=== PATIENT | female | born 1940 | race Caucasian/White ===

== ENCOUNTER 2018-06-30 16:18 | Inpatient (IN) ==
[2018-06-30 17:32] LABS: BASO# 0.02 X1000 (0.0-0.2); BASO% 0.1 % (0.0-0.8); EOS# 0.07 X1000 (0.0-0.7); EOS% 0.5 % (0.0-10.0); HEMATOCRIT 36.2 % (37.0-47.0); IMM GRAN# 0.03 X1000 (0.0-0.04); IMM GRAN% 0.2 % (0.0-0.5); INR 1.07; LYMPH# 8.95 X1000 (1.2-3.4); LYMPH% 59.1 % (20.5-51.1); MCH 29.5 PG (27-31); MCHC 33.1 g/dL (33-37); MCV 88.9 FL (81-99); MONO# 0.82 X1000 (0.11-0.59); MONO% 5.4 % (1.7-9.3); MPV 10.6 FL (7.4-10.4); NEUT# 5.26 X1000 (1.4-6.5); NEUT% 34.7 % (42.2-75.2); PLT 304 X1000 (130-400); PROTIME 14.8 Seconds (11.0-16.0); RBC 4.07 XMIL (4.2-5.4); RDW 12.9 % (11.5-14.5); WBC 15.15 X1000 (4.8-10.8)
[2018-06-30 17:33] LABS: PTT 37.5 Seconds (22.3-41.8)
[2018-06-30 17:53] LABS: ALB/GLOB RATIO 1.8; ALBUMIN 3.7 g/dL (3.5-5.0); CALCIUM 8.8 mg/dL (8.8-10.2); POTASSIUM 3.6 mmol/L (3.5-5.1); TOTAL BILIRUBIN 0.3 mg/dL (0.20-1.00); TOTAL PROTEIN 5.8 g/dL (6.3-8.3)
--- NOTE | 2018-06-30 21:40 | HISTORY AND PHYSICAL ---
PRIMARY CARE PHYSICIAN: Brady Crocker MD. CHIEF COMPLAINT: Bloody diarrhea x5 days. HISTORY OF PRESENTING ILLNESS: A 78-year-old female with a history of CLL, ulcerative colitis, hyperlipidemia, and hypertension, had presented to the emergency department with 5 days' history of having bloody diarrhea. She states that she was feeling weak, and subsequently she had come to the emergency department. In the ED, she was evaluated, and due to presenting symptoms, it was thought that we will place her for observation for further evaluation and management. At the time of my examination, she denied any headache, fever, chills, chest pain, shortness of breath, or any recent weight changes but complained of bloody diarrhea. PAST MEDICAL HISTORY: Includes CLL, ulcerative colitis, hyperlipidemia, hypertension. PAST SURGICAL HISTORY: Hysterectomy, colon resection. ALLERGY: Penicillin. CURRENT MEDICATIONS: As listed in the medication reconciliation sheet. SOCIAL HISTORY: No history of smoking, alcohol, or illicit drug use. FAMILY HISTORY: No history of coronary disease. REVIEW OF SYSTEMS: Fourteen-point review of systems is as in HPI. Other systems negative. PHYSICAL EXAMINATION: GENERAL: Cooperative, friendly female. She is resting more comfortably now. VITAL SIGNS: Temperature 98.7 degrees, pulse 79, respiration 18, blood pressure 140/57. HEENT: Atraumatic, normocephalic. Extraocular movements intact. PERRLA. NECK: Supple. CHEST: Clear to auscultation. CARDIOVASCULAR: Regular rate and rhythm. ABDOMEN: Soft. Diffuse tenderness. EXTREMITIES: No edema. NEUROLOGIC: She is awake, alert, oriented x3. GENITOURINARY: No bladder distention. SKIN: Warm. LABORATORIES AND STUDIES: WBC 15.15, hemoglobin 12.1, hematocrit 36.2, platelets 304,000. Sodium 128, potassium 3.6, chloride 89, CO2 of 28, BUN is 11, creatinine 1.0, glucose 101. ASSESSMENT: A 78-year-old female with a history of ulcerative colitis, chronic lymphocytic leukemia, hyperlipidemia, and hypertension, had presented to the emergency department with 5 days' history of having bloody diarrhea. She states that it seemed to be worsening, and subsequently she had come to the emergency department. In the ED, she was evaluated, and due to her presenting symptoms, it was thought that we will place her for observation for further evaluation and management. 1. Abdominal pain. 2. Ulcerative colitis with bloody diarrhea. 3. Hyponatremia. 4. Afib 5. Chronic lymphocytic leukemia- not on treatment 6. Hypertension. PLAN: 1. We will admit patient to medical floor with telemetry. 2. Keep patient NPO. Continue with IV fluids, antiemetics 3. Consult Gastroenterology. 4. Hold anticoagulation meds 5. We will monitor electrolytes. 6. Monitor BP closely 7. Put patient on DVT prophylaxis with SCD. 8. We will continue to follow and reassess and make further recommendation based on patient's clinical course. cc: Gerhard Gilliam MD MTD
[2018-06-30] MEDS: ZOFRAN IV PRN (22:42)
[2018-06-30] MEDS: FLAGYL 500 MG/NS 500 MG/100 ML IVPB IV SCH (22:42)
[2018-06-30] MEDS: NS 1,000 ML IV SCH (22:42)
--- NOTE | 2018-07-01 00:31 | PROVIDER DOCUMENTATION ---
This chart was entered by Lynette Mott Scribe, acting as scribe for Doreen Kauffman MD. HPI-Abdominal Pain/GI Problem - General Chief Complaint: GI Bleed Stated Complaint: "DEHYDRATED" Time Seen by Provider: 06/30/18 17:57 Source: patient Allergies/Adverse Reactions: Patient Allergies Allergy/AdvReac Type Severity Reaction Status Date / Time Penicillins Allergy ITCHING Verified 06/30/18 19:31 Home Medications: Home Medication List Medication Instructions Recorded Confirmed Last Taken Type Amlodipine [Norvasc] 5 mg PO QHS 06/25/15 06/30/18 06/24/15 20:00 History Fluticasone 50 Mcg Nasal [place] 1 spray INH QAM 06/25/15 06/30/18 06/24/15 07:00 History [Flonase] Lisinopril 20 mg PO BID 06/25/15 06/30/18 06/24/15 20:00 History Omeprazole 40 mg PO QAM 06/25/15 06/30/18 06/24/15 07:00 History Sotalol [Betapace] 80 mg PO BID 06/25/15 06/30/18 06/25/15 07:00 History Apixaban [Eliquis] 1 tab PO BID 06/30/18 06/30/18 Unknown History Nitroglycerin [Nitrostat] 0.4 mg SL PRN PRN 06/30/18 06/30/18 Unknown History - History of Present Illness-ABD Nature of Presenting Problems: 78 y/o female presents to ED with dark brown/tarry stool onset 3 days ago. Pt reports she was seen at [facility] on 06/25/18 and discharged. Pt states she has hx colitis and CLL. Pt reports associated poor appetite, fluid intake, N/D, and headache. Pt is alert and oriented. Abdominal Pain Onset Location: reports: generalized abdomen Pain Radiation: reports: no radiation Quality of Pain: reports: aching Severity in ED: reports: mild Onset/Duration: reports: 3 days ago Timing: reports: still present Activities at Onset: reports: none Exposure to sick contacts?: No Modifying Factors: improves with: nothing Associated Symptoms: reports: diarrhea, headaches, loss of appetite, nausea, other (dark brown/tarry stools; poor fluid intake) Last BM: this afternoon Dark Stools Present?: reports: tarry (dark brown) Rectal Bleeding: reports: none Rectal Pain: reports: none Similar Symptoms Previously?: No Recently seen or treated by another doctor?: Yes ([facility] 06/25/18) Review of Systems - Adult - REVIEW OF SYSTEMS - ADULT Constitutional: denies: chills, fever Eyes: reports: no symptoms reported Ears, Nose, Mouth & Throat: reports: no symptoms reported Cardiovascular: denies: chest pain, palpitations Respiratory: denies: cough, shortness of breath Gastrointestinal: reports: abdominal pain, diarrhea, nausea, poor appetite, other (tarry/dark brown stools, poor fluid intake). denies: vomiting Genitourinary: reports: no symptoms reported Musculoskeletal: denies: back pain, joint pain Integumentary: reports: no symptoms reported Neurological: reports: headache/migraines. denies: dizziness/vertigo, seizure Psychiatric: reports: no symptoms reported Endocrine: reports: no symptoms reported Hematologic/Lymphatic: reports: no symptoms reported Allergic/Immunologic: reports: no symptoms reported All Other Systems: Reviewed and Negative Past History - Adult - PAST MEDICAL HISTORY-ADULT Review of Records: reports: Old Records Reviewed, Nursing Assessment Review, Medications Reviewed Major Childhood Illnesses: reports: denies history Cardiovascular: reports: A-Fib, HTN, hyperlipidemia Gastrointestinal: reports: colitis, GERD Endocrine/Immune: reports: Leukemia (CLL) - PRIOR SURGERIES/PROCEDURES Surgical/Procedure History: reports: hysterectomy, bowel surgery (colon resection), orthopedic (extremity) (R shoulder), breast (augmentation) - IMMUNIZATION STATUS Childhood Immunizations: See Nurse Assessment Flu Vaccine: See Nurse Assessment - FAMILY HISTORY Family History: reviewed, not pertinent - SOCIAL HISTORY Smoking: non-smoker Substance Use: none/never Alcohol Use Frequency: never Living Situation: family Physical Exam-General - PHYSICAL EXAM-ADULT Initial Vital Signs Reviewed: Yes - CONSTITUTIONAL General Appearance: appears well, alert, no apparent distress - EYES Eyes: PERRL/EOMI, pink conjunctivae - HEAD, EARS, NOSE, MOUTH & THROAT HENMT: normocephalic/atraumatic, moist mucous membranes, normal ENT inspection - NECK Neck: non-tender, full range of motion - RESPIRATORY Respiratory: chest non-tender, lungs clear, normal breath sounds - CARDIOVASCULAR Cardiovascular: normal peripheral pulses, regular rate, rhythm - GASTROINTESTINAL (ABDOMEN) Abdominal Exam: normal bowel sounds, non tender, soft - GENITOURINARY Rectal Exam: normal exam, normal rectal tone, other (brown stool) Hemoccult Exam: heme positive stool - MUSCULOSKELETAL Back Exam: normal inspection, no CVA tenderness Extremity: normal range of motion, non-tender, normal gait - SKIN Integumentary: normal color, warm/dry - NEUROLOGIC Neurologic: grossly normal Progress - PLAN OF CARE/RESULTS Progress/Plan/Lab Results: Vital Signs - 8 hr 06/30/18 16:31 Temperature 98.7 F Pulse Rate 79 Respiratory Rate 18 Blood Pressure 140/57 O2 Sat by Pulse Oximetry 98 Laboratory Results - last 24 hr 06/30/18 06/30/18 06/30/18 17:09 17:09 17:09 WBC 15.15 H RBC 4.07 L Hgb 12.0 Hct 36.2 L MCV 88.9 MCH 29.5 MCHC 33.1 RDW Std Deviation 12.9 Plt Count 304 MPV 10.6 H Immature Gran % (Auto) 0.2 Neut % (Auto) 34.7 L Lymph % (Auto) 59.1 H [place] % (Auto) 5.4 Eos % (Auto) 0.5 Baso % (Auto) 0.1 Immature Gran # (Auto) 0.03 Neut # (Auto) 5.26 Lymph # (Auto) 8.95 H [place] # (Auto) 0.82 H Eos # (Auto) 0.07 Baso # (Auto) 0.02 PT 14.8 INR 1.07 PTT (Actin FS) 37.5 Sodium 128 L Potassium 3.6 Chloride 89 L Carbon Dioxide 28 Anion Gap 11 BUN 11 Creatinine 1.0 H Estimated GFR/1.73 m2 53 BUN/Creatinine Ratio 11 Glucose 101 Calculated Osmolality 257 Calcium 8.8 Total Bilirubin 0.30 AST 21 ALT 10 Alkaline Phosphatase 51 Total Protein 5.8 L Albumin 3.7 Globulin 2.1 Albumin/Globulin Ratio 1.8 Orders Category Date Time Status CBC WITH ELECTRONIC DIFF [HEME] Stat Lab 06/30/18 17:09 Completed COMPREHENSIVE METABOLIC PANEL [CHEM] Stat Lab 06/30/18 17:09 Completed OCCULT BLOOD DIAGNOSTIC [STOOL] Stat Lab 06/30/18 18:06 Uncollected PROTIME WITH INR [COAG] Stat Lab 06/30/18 17:09 Completed PTT [COAG] Stat Lab 06/30/18 17:09 Completed GI Bleed (possible) Stat Oth 06/30/18 17:13 Ordered Result Diagrams: 06/30/18 17:09 06/30/18 17:09 - CONSULTS/PCP/HOSPITALIST Notification #1 *Consult/PCP/Hospitalist*: Dr. Gerhard Gilliam Time Discussed: 19:54 Consult Disposition: Will see in ED #2 Consult: Dr. Gerhard Gilliam Time Discussed: 21:05 Consult Disposition: Admit (Accepted.) Departure - Departure Date of Disposition Decision: 06/30/18 Time of Disposition Decision: 21:25 DIAGNOSIS: Colitis, Blood in stool Disposition: HOME 01 Certified Medical Emergency: Emergent Condition: Stable - Critical Care Note This patient required my direct & personal management of CC.: No Attestation - Physician/ NICOLAS Attestation Patient care was provided by Advanced Practice Provider:: No The physician spent face to face time with patient:: Yes Advanced Practice Provider documentation review:: Supervising physician onsite and consulted in the evaluation and care of this patient. The physician did have a face to face encounter with the patient. This chart was documented by the indicated scribe, (Lynette Mott, [place]) and accurately reflects the services I performed and decisions made by me, Doreen Kauffman MD, as attested by the provider's signature.
[2018-07-01] MEDS: ZOFRAN IV PRN (05:35)
[2018-07-01] MEDS: FLAGYL 500 MG/NS 500 MG/100 ML IVPB IV SCH ×3 (05:35→22:34)
[2018-07-01] MEDS: PRILOSEC PO SCH (05:59)
[2018-07-01 07:40] LABS: BASO# 0.02 X1000 (0.0-0.2); BASO% 0.2 % (0.0-0.8); EOS% 0.8 % (0.0-10.0); HEMATOCRIT 33.6 % (37.0-47.0); HEMOGLOBIN 10.7 g/dL (12.0-16.0); IMM GRAN# 0.02 X1000 (0.0-0.04); IMM GRAN% 0.2 % (0.0-0.5); LYMPH# 6.48 X1000 (1.2-3.4); LYMPH% 54.3 % (20.5-51.1); MCH 28.8 PG (27-31); MCHC 31.8 g/dL (33-37); MCV 90.6 FL (81-99); MONO# 0.83 X1000 (0.11-0.59); MPV 10.7 FL (7.4-10.4); NEUT# 4.49 X1000 (1.4-6.5); NEUT% 37.5 % (42.2-75.2); PLT 230 X1000 (130-400); RBC 3.71 XMIL (4.2-5.4); RDW 13.1 % (11.5-14.5); WBC 11.94 X1000 (4.8-10.8)
[2018-07-01 07:48] LABS: AGAP 10; BUN 8 mg/dL (8-22); CALCIUM 7.4 mg/dL (8.8-10.2); CHLORIDE 96 mmol/L (98-107); COSMO 264; CREATININE 0.8 mg/dL (0.5-0.9); ESTIMATED GFR > 60; GLUCOSE 79 mg/dL (70-104); POTASSIUM 3.2 mmol/L (3.5-5.1); SODIUM 133 mmol/L (136-145); TCO2 27 mmol/L (25-35)
[2018-07-01] MEDS: BETAPACE PO SCH ×2 (09:52→22:38)
[2018-07-01] MEDS: PRINIVIL PO SCH ×2 (09:52→22:39)
[2018-07-01] MEDS: NS 1,000 ML IV SCH (09:53)
[2018-07-01] MEDS ORDERED: ROWASA ENEMA PR SCH (11:30)
[2018-07-01] MEDS ORDERED: ASACOL HD PO SCH (11:30)
[2018-07-01] MEDS: K-LYTE CL PO SCH ×2 (16:10→22:33)
[2018-07-01] MEDS ORDERED: LEVAQUIN 500 MG/D5W 500 MG/100 ML IVPB IV SCH (20:30)
[2018-07-01] MEDS ORDERED: SOLU-MEDROL IV SCH (20:30)
[2018-07-01] MEDS ORDERED: BACTRIM IV SCH (20:45)
[2018-07-01 21:53] LABS: URINE SOURCE CLEAN CATCH
[2018-07-01 21:57] LABS: BILIRUBIN URINE NEGATIVE (NEGATIVE); BLOOD URINE SMALL (NEGATIVE); COLOR YELLOW; GLUCOSE URINE NEGATIVE (NEGATIVE); KETONE URINE NEGATIVE (NEGATIVE); LEUKOCYTES URINE NEGATIVE (NEGATIVE); NITRITE URINE NEGATIVE (NEGATIVE); PH URINE 6.5; PROTEIN URINE NEGATIVE (NEGATIVE); TURBIDITY URINE CLEAR (CLEAR); UR EPITHELIAL CELLS <10 /HPF (<10); URINE BACTERIA NEGATIVE /HPF; URINE RBC <10 /HPF (<10); URINE WBC <10 /HPF (<10); UROBILINOGEN URINE NORMAL (NORMAL)
[2018-07-01] MEDS: LIALDA PO SCH (22:33)
[2018-07-01] MEDS: NORVASC PO SCH (22:39)
[2018-07-01] MEDS: D5W IV SCH (23:55)
[2018-07-01] MEDS: SEPTRA IV SCH (23:55)
--- NOTE | 2018-07-02 01:33 | CONSULTATION ---
DATE OF CONSULTATION: 07/01/2018 REFERRING PHYSICIAN: Dr. Brady Crocker. PRIMARY PETROLEUM ENGINEERING PROFESSOR: Dr. Nakul Retana. INDICATION FOR CONSULTATION: Acute colitis. HISTORY OF PRESENT ILLNESS: The patient is a 78-year-old white female who is followed by Dr. Nakul Retana for treatment of ulcerative colitis. She reports that she was doing well until the 21 of June. She purchased white chocolate covered nuts from [*]in a substantial amount. Following the consumption of the chocolate covered nuts, she had the onset of abdominal pain and diarrhea. She presented to [facility] on 06/25/2018 and was found to have extensive colitis of the cecum and ascending colon. The appendix appeared fine. She had evidence of diverticulosis with no diverticulitis. There were multiple small hypodensities in the kidneys and spleen that suggested small abscess versus septic emboli with trace fluid. She was discharged to home on oral Flagyl and Levaquin. However, she became progressively worse. She presented to the emergency room on 06/30/2018 with persistent bloody diarrhea. She is admitted for further evaluation. With regard to her ulcerative colitis, the patient states that she was on Asacol, but in recent months she had stopped taking it because it made her have diarrhea with fecal incontinence. In fact, after she received a dose of Asacol today in the hospital, she had diarrhea with fecal incontinence in her room and currently is refusing to take any more Asacol. Because of her acute colitis, we are asked to participate in her care. PAST MEDICAL HISTORY: 1. CLL. 2. Ulcerative colitis. 3. Hyperlipidemia. 4. Hypertension. 5. Diverticulitis. 6. Atrial fibrillation. 7. GERD. PAST SURGICAL HISTORY: 1. Hysterectomy. 2. Sigmoid colon resection secondary to severe acute diverticulitis. MEDICATION ALLERGIES: Penicillin. HOME MEDICATIONS: 1. Norvasc. 2. Eliquis. 3. Flonase. 4. Lisinopril. 5. Nitrostat. 6. Omeprazole. 7. Pravastatin. 8. Sotalol. SOCIAL HISTORY: Negative for alcohol, tobacco or recreational drug use. FAMILY HISTORY: Negative for coronary artery disease. REVIEW OF SYSTEMS: Only remarkable for the bloody diarrhea and mild diffuse abdominal pain. She notes that her CLL has been under control and she had a recent checkup that was "good." PHYSICAL EXAMINATION: General: On exam, she is resting comfortably in a chair in no acute distress. Vital Signs: Her blood pressure is 95/57, pulse is 66, respirations 16, temperature of 98.1 degrees. HEENT: Negative for jaundice. Her oropharyngeal mucosal membranes are dry. Pulmonary: Her lungs are clear to auscultation with normal respiratory effort. Cardiovascular: Exam reveals regular rate and rhythm with no murmurs, gallops, or rubs. Abdomen: Her abdomen is soft with mild diffuse tenderness. There is no rebound or guarding. Extremities: Bilaterally are negative for cyanosis, clubbing, or edema. OBJECTIVE DATA: Reveals a hemoglobin of 10.7 with hematocrit of 33.6 and a white count of 11.94. She has 230,000 platelets. Her sedimentation rate is 44. Sodium is 133, potassium 3.2, chloride 96, CO2 27, BUN 8, creatinine 0.8 with a glucose of 79. Calcium is 7.4 with a CRP of 43.84. Notably, on 06/25/2018 she had a urinalysis that revealed too numerous to count red blood cells with trace white blood cells. There was no urine culture performed on 06/25. IMPRESSION: 1. Acute colitis secondary to ulcerative colitis. 2. Diverticulosis. 3. Hematuria with possible pyuria. 4. Iron deficiency anemia. RECOMMENDATION: 1. Because the patient reports diarrhea with Asacol, I will discontinue the Asacol and begin Lialda 2.4 g p.o. daily. 2. Because the colitis is right sided as opposed to the left side, I will discontinue the [place] enemas and the [place] suppositories. 3. Begin Solu-Medrol 20 mg IV q.24 hours. The patient reports anxiety and panic attacks with high-dose steroids in the past. 4. I will repeat the urinalysis given that she had pyuria and hematuria less than a week ago. 5. I will continue Flagyl as she is currently receiving. 6. I will add Septra DS IV in order to address the presumed urinary tract infection as well as the severe acute colitis. 7. Additional recommendations will be based on her clinical course. 8. Dr. Nakul Retana returns tomorrow to assume care. cc: MD Steffanie Bond MD Russell T. Crocker, MD
[2018-07-02] MEDS: FLAGYL 500 MG/NS 500 MG/100 ML IVPB IV SCH ×3 (05:18→22:06)
[2018-07-02] MEDS: SEPTRA IV SCH ×2 (06:31→16:40)
[2018-07-02] MEDS: D5W IV SCH ×2 (06:31→16:40)
[2018-07-02] MEDS: PRILOSEC PO SCH (06:31)
[2018-07-02] MEDS: K-LYTE CL PO SCH ×2 (08:29→22:03)
[2018-07-02] MEDS: PRINIVIL PO SCH ×2 (08:29→22:02)
[2018-07-02] MEDS: BETAPACE PO SCH ×2 (08:30→22:01)
[2018-07-02] MEDS: PRAVACHOL PO SCH (08:30)
[2018-07-02] MEDS: LIALDA PO SCH (12:37)
--- NOTE | 2018-07-02 17:58 | PROGRESS NOTE ---
DATE: 07/02/2018 SUBJECTIVE: Patient's symptoms have improved some. Abdominal pain has improved. OBJECTIVE: Vital Signs: Temperature 98.0, pulse 72, respirations 18, blood pressure 102/38. General: Patient is awake, alert, in no acute distress. Respiratory: Lung sounds essentially clear. Abdomen: With some tenderness on palpation. Otherwise, soft with positive bowel sounds. LABORATORY: Hematology: WBC 11.94, hemoglobin 10.7, hematocrit 33.6, MCV 90.6. Chemistry: Sodium 133, potassium 3.2 chloride 96, CO2 27, BUN 8, creatinine 0.8, glucose 79, calcium 7.4, C- reactive protein 43.84. ASSESSMENT AND PLAN: Colitis of the cecum and ascending colon per CT scan, diverticulosis. Continue current antibiotics. Continue Lialda. Continue symptomatic treatment and supportive care. So far, patient is tolerating a liquid diet. Further plans to be made according to her progress. I have discussed this case with Dr. Retana. Dictated by MARKO Pickard for Nakul Retana MD cc: MARKO Pierre MD Russell T. Barr, MD
[2018-07-02] MEDS ORDERED: RESTORIL PO SCH (21:00)
[2018-07-02] MEDS: NORVASC PO SCH (22:05)
[2018-07-03] MEDS: FLAGYL 500 MG/NS 500 MG/100 ML IVPB IV SCH ×3 (06:02→21:59)
[2018-07-03] MEDS: PRILOSEC PO SCH (06:02)
[2018-07-03 07:08] LABS: BASO# 0.02 X1000 (0.0-0.2); BASO% 0.1 % (0.0-0.8); EOS# 0.11 X1000 (0.0-0.7); EOS% 0.6 % (0.0-10.0); HEMATOCRIT 33.4 % (37.0-47.0); HEMOGLOBIN 10.9 g/dL (12.0-16.0); LYMPH# 10.65 X1000 (1.2-3.4); LYMPH% 61.8 % (20.5-51.1); MCH 29.5 PG (27-31); MCHC 32.6 g/dL (33-37); MCV 90.3 FL (81-99); MONO# 1.12 X1000 (0.11-0.59); MONO% 6.5 % (1.7-9.3); MPV 10.7 FL (7.4-10.4); NEUT# 5.34 X1000 (1.4-6.5); PLT 264 X1000 (130-400); RDW 13.7 % (11.5-14.5); WBC 17.24 X1000 (4.8-10.8)
[2018-07-03 07:31] LABS: AGAP 9; BUN 4 mg/dL (8-22); CHLORIDE 99 mmol/L (98-107); COSMO 261; CREATININE 0.8 mg/dL (0.5-0.9); ESTIMATED GFR > 60; GLUCOSE 98 mg/dL (70-104); MAGNESIUM 1.9 mg/dL (1.5-2.7); POTASSIUM 3.9 mmol/L (3.5-5.1); SODIUM 132 mmol/L (136-145); TCO2 24 mmol/L (25-35)
[2018-07-03] MEDS: SEPTRA IV SCH ×3 (07:58→23:15)
[2018-07-03] MEDS: D5W IV SCH ×3 (07:58→23:15)
[2018-07-03] MEDS ORDERED: ZOFRAN ODT PO PRN (08:09)
[2018-07-03] MEDS: BETAPACE PO SCH ×2 (10:18→21:59)
[2018-07-03] MEDS: LIALDA PO SCH (10:19)
[2018-07-03] MEDS: PREDNISONE PO SCH (10:20)
[2018-07-03] MEDS ORDERED: SERAX PO ONE (10:23)
[2018-07-03] MEDS: PRINIVIL PO SCH ×2 (12:53→21:59)
--- NOTE | 2018-07-03 20:14 | PROGRESS NOTE ---
DATE: 07/03/2018 SUBJECTIVE: The patient states that her pain has improved some. However, she reports a panic attack last night and is now afraid to take her medications. Specifically, she is refusing to take prednisone as she is concerned that this may be triggering her anxiety. She denies other complaints. OBJECTIVE: Vital Signs: Her blood pressure is 113/49, pulse 68, respirations 16, temperature of 97.7 degrees. The remainder of her exam was deferred. LABORATORY DATA: Reveals a hemoglobin of 10.9 with hematocrit of 33.4 and a white count of 17.24. She has 264,000 platelets. Sodium is 132, potassium 3.9, chloride 99, CO2 of 24, BUN 4, creatinine 0.8 with a glucose of 98, and calcium of 8.0. Magnesium is 1.9. RECOMMENDATIONS: 1. Continue Lialda 2.4 g per day. 2. Hold prednisone pending further evaluation by Nakul Retana MD. 3. Continue Septra and Flagyl for the acute colitis. 4. Dr. Nakul Retana will return in the morning to assume care. cc: MD Brady García MD Khurshid Yousuf, MD
[2018-07-03] MEDS: NORVASC PO SCH (21:59)
[2018-07-03] MEDS: AMBIEN PO SCH (21:59)
[2018-07-03] MEDS: PRAVACHOL PO SCH (21:59)
[2018-07-04] MEDS: PRILOSEC PO SCH (06:21)
[2018-07-04] MEDS: FLAGYL 500 MG/NS 500 MG/100 ML IVPB IV SCH (06:21)
[2018-07-04] MEDS: D5W IV SCH (08:07)
[2018-07-04] MEDS: SEPTRA IV SCH (08:07)
[2018-07-04] MEDS ORDERED: SERAX PO PRN (08:41)
[2018-07-04] MEDS: PREDNISONE PO SCH (10:54)
[2018-07-04] MEDS: BETAPACE PO SCH ×2 (10:54→22:01)
[2018-07-04] MEDS: PRAVACHOL PO SCH (10:54)
[2018-07-04] MEDS: PRINIVIL PO SCH ×2 (10:54→22:01)
[2018-07-04] MEDS: LIALDA PO SCH (10:55)
[2018-07-04] MEDS: ENTOCORT EC PO SCH (13:50)
--- NOTE | 2018-07-04 14:33 | PROGRESS NOTE ---
DATE: 07/04/2018 SUBJECTIVE: Patient was also seen by Dr. Retana. She states her abdominal pain has improved some. Diarrhea has improved, but she is complaining of nausea and being sick to her stomach. She does report episodes of vomiting. She has reported some side effects, anxiety, panic attacks that she relates to prednisone. OBJECTIVE: Vital Signs: Temperature 98.0 degrees, pulse 66, respirations 20, blood pressure 130/64. General: Patient is awake, alert, no acute distress. Respiratory: Lung sounds clear. Abdomen: Soft, mild tenderness. Otherwise, positive bowel sounds. LABORATORY: Hematology: WBC 17.24, hemoglobin 10.9, hematocrit 33.4, MCV 90.3. Chemistry: Sodium 132, potassium 3.9, chloride 99, CO2 24. BUN 4, creatinine 0.8, glucose 98. ASSESSMENT AND PLAN: Ulcerative colitis, flare-up. Continue on Lialda. We will change her oral prednisone 2 Entocort to see if she can tolerate. Her antibiotics have been discontinued due to side effects. We will continue symptomatic treatment and supportive care. Further plans will be made according to her progress. Patient was also seen by Dr. Retana. Dictated by MARKO Pickard for Nakul Retana MD cc: MARKO Pierre MD Russell T. Barr, MD
[2018-07-04] MEDS: AMBIEN PO SCH (22:01)
[2018-07-04] MEDS: NORVASC PO SCH (22:01)
[2018-07-05] MEDS: PRILOSEC PO SCH (06:24)
[2018-07-05] MEDS: ENTOCORT EC PO SCH (08:40)
[2018-07-05] MEDS: LIALDA PO SCH (08:40)
[2018-07-05] MEDS: PRINIVIL PO SCH (08:40)
[2018-07-05] MEDS: PRAVACHOL PO SCH (08:40)
[2018-07-05] MEDS: BETAPACE PO SCH (08:41)
[2018-07-05 14:10] VITALS: BP 124/55
--- NOTE | 2018-07-05 19:35 | DISCHARGE SUMMARY ---
ADMISSION DATE: 07/01/2018 DISCHARGE DATE: 07/05/2018 FINAL DIAGNOSES: 1. Acute flare of ulcerative colitis with bloody diarrhea. 2. Abdominal pain. 3. Hyponatremia. 4. Chronic lymphocytic leukemia. 5. Hypertension. HISTORY OF PRESENT ILLNESS: Ms. Delgado is a 78-year-old woman with a long history of ulcerative colitis who initially presented to the emergency room 5 days prior to admission with abdominal pain. She had a CT scan of the abdomen performed which showed extensive colitis from the cecum to the hepatic flexure. She was sent home but came back to the emergency room on the day of admission with a 5-day history of weakness, abdominal pain, and diarrhea with some small amounts of blood in it. She was on anticoagulation for paroxysmal atrial fibrillation. She also is followed at [facility] for CLL. 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 HOSPITAL PHYSICAL EXAMINATION: GENERAL: Reveals an alert, cooperative female who appeared fairly comfortable. VITAL SIGNS: Unremarkable. HEENT: Unremarkable. NECK: Supple. LUNGS: Clear. CARDIOVASCULAR: Regular rate and rhythm. ABDOMEN: Soft with diffuse tenderness but no guarding or rebound tenderness. Bowel sounds are present. LABORATORY DATA: White blood count was 15,000 with elevated lymphocytes. Hemoglobin 12.1, hematocrit 36.2%, platelet count normal. Sodium 128. HOSPITAL COURSE: She was admitted to the medical floor and placed n.p.o. and was given IV fluids and antiemetics. She was restarted on her mesalamine, and we ordered some enemas. A GI consult was ordered. Dr. Retana was out of town, but she was seen by Dr. Jorgensen. Dr. Jorgensen started her on some low-dose intravenous steroids, and her mesalamine was changed to Lialda 1.2 grams 2 tablets once a day. Ms. Delgado felt the steroids caused increased nervousness, and she resisted taking oral prednisone and insisted on some antianxiety medicine and sleep medicine. She eventually managed to sleep some with Zolpidem 10 mg at bedtime and an occasional dose of oxazepam 15 mg during the day for anxiety. Dr. Retana returned and changed her prednisone to Entocort 9 mg daily. The diarrhea ceased after several days, and her diet was resumed, and she finally had a normal supper tonight. She denies any nausea or vomiting. I feel she can go home and return to see Dr. Retana in 1-2 weeks. DISCHARGE MEDICATIONS: 1. Mesalamine delayed release 1.2 gram tablets, 2 tablets once a day for ulcerative colitis. 2. Zofran ODT 4 mg every 6 hours as needed for nausea or vomiting. 3. Ambien 10 mg at bedtime p.r.n. for sleep. 4. Budesonide extended release 3 mg capsules, 3 capsules daily for ulcerative colitis. 5. Omeprazole 40 mg every morning. 6. Lisinopril 20 mg at bedtime. 7. Amlodipine 5 mg at bedtime. 8. Sotalol 40 mg every morning. 9. Flonase nasal spray as needed. 10.Nitroglycerin 0.4 mg sublingually as needed. 11.Eliquis 1 tablet b.i.d. 12.Pravastatin 40 mg at bedtime. 13.Hydrochlorothiazide 25 mg every morning. cc: Brady Crocker MD
[2018-07-05] MEDS ORDERED: PRAVACHOL PO SCH (21:00)
[2018-07-06] MEDS ORDERED: BETAPACE PO SCH (09:00)
== END 2018-07-05 18:59 | disposition home or self-care (01) | DRG 386 ==
LOC: ED 16:18 → SUATTDRO 21:43 → 3N 21:43 → INTOOBSV 21:43
PROVIDERS: ADMIT Internal Medicine; ATTEND Internal Medicine
CPT/HCPCS: 80048; 80053; 81001; 82272; 83735; 85025; 85610; 85651; 85730; 86140; 87324; 99284; A9270; J2405; J2920; J7030; J7060; J7506; J7512; S0030; S0039